=== PATIENT | male | born 1955 | race Caucasian/White ===

== ENCOUNTER 2023-09-20 05:24 | Day surgery (SDC) | payer MEDICARE ==
[~2023-09-20] VITALS: Ht 167.6 cm; Wt 74.9 kg
[~2023-09-20 05:24] MED LIST: RINGERS SOLUTION,LACTATED 1,000 ML IV ONE
[2023-09-20] MEDS: RINGERS SOLUTION,LACTATED 1,000 ML IV ONE (06:11)
[2023-09-20] MEDS: CHLORHEXIDINE GLUCONATE 2% TOWELETTE [2'S/6'S] TP ONE (06:14)
[2023-09-20] MEDS ORDERED: MINERAL OIL 10 ML VIAL TP ONE (06:29)
[2023-09-20] MEDS ORDERED: BUPIVACAINE 0.25%/EPI 1:200,000/PF 30 ML VIAL ONE (06:29)
[2023-09-20] MEDS: BUPIVACAINE HCL/PF 0.25% 30 ML VIAL ONE (08:00)
[2023-09-20] MEDS: BUPIVACAINE 0.25%/EPI 1:200,000/PF 30 ML VIAL ONE (08:26)
[2023-09-20] MEDS ORDERED: OxyCODONE HCL/ACETAMINOPHEN 5-325 MG TABLET ONE (10:14)
[2023-09-20] MEDS: OxyCODONE HCL/ACETAMINOPHEN 5-325 MG TABLET PO ONE (10:16)
[2023-09-20] MEDS ORDERED: DEXAMETHASONE SOD PHOS 4 MG/ML VIAL IVP ONE ×2 (11:20→12:00)
[2023-09-20] MEDS ORDERED: FentaNYL CITRATE PF 100 MCG/2 ML VIAL IVP ONE (12:00)
[2023-09-20] MEDS ORDERED: SUGAMMADEX SODIUM 200 MG/2 ML VIAL IVP ONE (12:00)
[2023-09-20] MEDS ORDERED: METOCLOPRAMIDE HCL 5 MG/ML 2 ML VIAL IVP ONE (12:00)
[2023-09-20] MEDS ORDERED: CeFAZolin SODIUM 1 GM VIAL IVP ONE (12:00)
[2023-09-20] MEDS ORDERED: KETOROLAC TROMETHAMINE 60 MG/2 ML VIAL IM ONE (12:00)
[2023-09-20] MEDS ORDERED: MIDAZOLAM HCL 2 MG/2 ML VIAL IVP ONE (12:00)
[2023-09-20] MEDS ORDERED: GLYCOPYRROLATE 0.2 MG/ML VIAL IM ONE (12:00)
[2023-09-20] MEDS ORDERED: ONDANSETRON HCL 4 MG/2 ML VIAL IVP ONE (12:00)
[2023-09-20] MEDS ORDERED: PROPOFOL 1% 20 ML VIAL IVP ONE (12:00)
== END 2023-09-20 12:05 | disposition home or self-care (01) ==
LOC: SURGERY 05:24
PROVIDERS: ATTEND Surgery Plastic and Reconstructive Surgery
DX: D03.61 Melanoma in situ of right upper limb, including shoulder (principal); R94.31 Abnormal electrocardiogram [ECG] [EKG]; I45.10 Unspecified right bundle-branch block; R07.9 Chest pain, unspecified; G43.909 Migraine, unspecified, not intractable, without status migrainosus; Z98.890 Other specified postprocedural states; Z79.899 Other long term (current) drug therapy
CPT/HCPCS: 93005; 88307; 88342; 71046; 88341; 26210; 15574; 15120; 15275; 15276; J3490 ×2; J2704; J0690; J1100; J3010; J1885; J2765; J2250; J2405; Q9967; J7120; Q4158; Z7610

== ENCOUNTER 2023-10-11 05:23 | Day surgery (SDC) | payer MEDICARE, MEDICAID ==
[~2023-10-11] VITALS: Ht 177.8 cm; Wt 77.2 kg
[2023-10-11] MEDS ORDERED: LIDOCAINE/PF 2% 5 ML VIAL IM ONE (05:24)
[2023-10-11] MEDS ORDERED: SUGAMMADEX SODIUM 200 MG/2 ML VIAL IVP ONE (05:24)
[2023-10-11] MEDS ORDERED: DEXAMETHASONE SOD PHOS 4 MG/ML VIAL IVP ONE (05:24)
[2023-10-11] MEDS ORDERED: MIDAZOLAM HCL 2 MG/2 ML VIAL IVP ONE (05:24)
[2023-10-11] MEDS ORDERED: ROCURONIUM BROMIDE 10 MG/ML 5 ML VIAL IVP ONE (05:24)
[2023-10-11] MEDS ORDERED: ONDANSETRON HCL 4 MG/2 ML VIAL IVP ONE (05:24)
[2023-10-11] MEDS ORDERED: FentaNYL CITRATE PF 100 MCG/2 ML VIAL IVP ONE (05:24)
[2023-10-11] MEDS ORDERED: 0.9% SODIUM CHLORIDE 10 ML VIAL IVP ONE (05:24)
[2023-10-11] MEDS ORDERED: CeFAZolin SODIUM 1 GM VIAL IVP ONE (05:24)
[2023-10-11] MEDS ORDERED: PROPOFOL 1% 20 ML VIAL IVP ONE (05:24)
[2023-10-11] MEDS ORDERED: EPHEDrine SULFATE 50 MG/ML VIAL IM ONE (05:24)
[2023-10-11] MEDS ORDERED: BUPIVACAINE 0.25%/EPI 1:200,000/PF 30 ML VIAL ONE ×2 (05:29)
[2023-10-11] MEDS ORDERED: MINERAL OIL 10 ML VIAL TP ONE (05:47)
[2023-10-11] MEDS: RINGERS SOLUTION,LACTATED 1,000 ML IV ONE (06:00)
[2023-10-11] MEDS: CHLORHEXIDINE GLUCONATE 2% TOWELETTE [2'S/6'S] TP ONE (06:00)
[2023-10-11] MEDS ORDERED: BACITRACIN 28 GM OINTMENT TP ONE (07:30)
[2023-10-11] MEDS: BUPIVACAINE HCL/PF 0.25% 30 ML VIAL ONE (08:11)
== END 2023-10-11 10:00 | disposition home or self-care (01) ==
LOC: SURGERY 05:23
PROVIDERS: ATTEND Surgery Plastic and Reconstructive Surgery
DX: S61.200A Unspecified open wound of right index finger without damage to nail, initial encounter (principal); D03.9 Melanoma in situ, unspecified; Z83.3 Family history of diabetes mellitus; R60.9 Edema, unspecified; X58.XXXA Exposure to other specified factors, initial encounter; Y92.89 Other specified places as the place of occurrence of the external cause; Y93.89 Activity, other specified; Y99.8 Other external cause status
CPT/HCPCS: 15275; J3490 ×4; J2704; J0690; J1100; J3010; J2250; J2405; Q9967; J7120; Q4158